=== PATIENT | male | born 1955 | race Two or more races ===

== ENCOUNTER 2021-11-12 12:31 | Inpatient (IN) | payer OTHER ==
[~2021-11-12] VITALS: Ht 172.7 cm; Wt 91.7 kg
[2021-11-12 14:29] LABS: Basophils # (auto) 0 10 ^3/uL (0-0.2); Basophils % (auto) 0.1 % (0.0-2.0); Eosinophils # (auto) 0.1 10 ^3/uL (0-0.8); Eosinophils % (auto) 0.7 % (0.0-7.0); Hematocrit 41.5 % (41.0-53.0); Lymphocytes # (auto) 0.9 10 ^3/uL (0.4-5.4); Lymphocytes % (auto) 12.2 % (10.0-50.0); Mean Corpuscular Hemoglobin 29.9 pg (28.0-32.0); Mean Corpuscular Hgb Conc. 33.7 g/dL (32.0-36.0); Mean Corpuscular Volume 88.6 fL (80.0-100.0); Monocytes # (auto) 0.7 10 ^3/uL (0-1.3); Monocytes % (auto) 9.2 % (0.0-12.0); Neutrophils # (auto) 5.8 10 ^3/uL (1.6-8.6); Neutrophils % (auto) 77.8 % (37.0-80.0); Nucleated Red Blood Cells % 0.2 %; Red Blood Cells 4.69 10^6/uL (4.5-5.90); Red Cell Distribution Width 14.6 % (11.8-14.3); White Blood Cell 7.4 10^3/uL (4.4-10.8)
[2021-11-12 14:43] LABS: Albumin 3.5 g/dL (3.4-5.0); BUN/Creatinine Ratio 15.8; Calcium 8.7 mg/dL (8.5-10.1); Magnesium 2.1 mg/dL (1.6-2.6); Potassium 3.8 mmol/L (3.5-5.1)
[2021-11-12 14:46] LABS: Total Protein 6.6 g/dL (6.4-8.2)
[2021-11-12] MEDS ORDERED: ONDANSETRON HCL 4 MG/2 ML VIAL IV ONE (17:00)
[2021-11-12] MEDS ORDERED: MORPHINE SULFATE 4 MG/ML SYR/VIAL IV ONE (17:00)
[2021-11-12] MEDS ORDERED: AZITHROMYCIN 500MG/ 250ML 250 ML IV ONE (17:30)
[2021-11-12] MEDS ORDERED: MORPHINE SULFATE INJ 2 MG/ml SYRG IV PRN (17:30)
[2021-11-12] MEDS ORDERED: cefTRIAXone 1GM/50ML D5W 50 ML IV ONE (17:45)
[2021-11-12] MEDS ORDERED: IOHEXOL 350 MG/ML 100ML IJ ONE (17:50)
[2021-11-12] MEDS ORDERED: ALBUTEROL SULF 2.5 MG/0.5ML(0.5%) NEB SOLN NEB PRN (18:15)
[2021-11-12] MEDS ORDERED: DexAMETHasone SOD PHOS 10MG/1ML VIAL INJ IV ONE (18:15)
[2021-11-12 18:33] LABS: Cholesterol 164 mg/dL (< 200); HDL Cholesterol 63 mg/dL (40-59); LDL Cholesterol 89 mg/dL (< 100); Triglycerides 74 mg/dL (< 150)
[2021-11-12 18:42] LABS: INR 0.97 (0.9-1.15)
[2021-11-12] MEDS: SODIUM CHLORIDE 0.9% 1,000 ML IV SCH (19:02)
[2021-11-12 19:30] VITALS: BP 16/101
[2021-11-12 19:39] LABS: Urine Bacteria MOD /hpf (None Seen); Urine Blood Negative /uL (Negative); Urine Mucus FEW (None Seen); Urine WBC 3 /hpf (0 - 3)
[2021-11-12] MEDS ORDERED: HYDROcodone-ACET 5/325MG TAB PO PRN (20:45)
[2021-11-12 22:45] VITALS: BP 115/62
[2021-11-13 02:31] VITALS: BP 115/62
[2021-11-13] MEDS: SODIUM CHLORIDE 0.9% 1,000 ML IV SCH ×2 (03:45→14:30)
[2021-11-13 05:08] VITALS: BP 120/73
[2021-11-13 06:05] LABS: Basophils # (auto) 0 10 ^3/uL (0-0.2); Basophils % (auto) 0.1 % (0.0-2.0); Eosinophils # (auto) 0 10 ^3/uL (0-0.8); Hematocrit 41.6 % (41.0-53.0); Hemoglobin 14.2 g/dL (13.5-17.5); Lymphocytes # (auto) 0.5 10 ^3/uL (0.4-5.4); Lymphocytes % (auto) 5.7 % (10.0-50.0); Mean Corpuscular Hgb Conc. 34.1 g/dL (32.0-36.0); Mean Corpuscular Volume 87.8 fL (80.0-100.0); Monocytes # (auto) 0.5 10 ^3/uL (0-1.3); Monocytes % (auto) 5.2 % (0.0-12.0); Neutrophils # (auto) 8.2 10 ^3/uL (1.6-8.6); Nucleated Red Blood Cells % 0.1 %; Red Blood Cells 4.74 10^6/uL (4.5-5.90); Red Cell Distribution Width 14.4 % (11.8-14.3); White Blood Cell 9.2 10^3/uL (4.4-10.8)
[2021-11-13 06:18] LABS: Albumin 3.2 g/dL (3.4-5.0); Calcium 9.1 mg/dL (8.5-10.1); Potassium 4.3 mmol/L (3.5-5.1)
[2021-11-13 06:20] LABS: BUN/Creatinine Ratio 19.8
[2021-11-13 06:29] LABS: Bilirubin, Total 0.8 mg/dL (0.2-1.0); Total Protein 7.2 g/dL (6.4-8.2)
[2021-11-13] MEDS: cefTRIAXone 1GM/50ML D5W 50 ML IV SCH (10:30)
[2021-11-13] MEDS: AZITHROMYCIN 500MG/ 250ML 250 ML IV SCH (11:30)
[2021-11-13] MEDS ORDERED: IPRATROPIUM BROM 0.5 MG/2.5ML INH SOL NEB PRN (12:45)
[2021-11-13] MEDS: FAMOTIDINE 20 MG TAB PO SCH (21:39)
[2021-11-13 22:00] VITALS: BP 112/77
[2021-11-14] MEDS: SODIUM CHLORIDE 0.9% 1,000 ML IV SCH (03:03)
[2021-11-14 05:00] VITALS: BP 132/87
[2021-11-14 06:12] LABS: Bilirubin, Direct 0.1 mg/dL (0-0.2); Magnesium 2.4 mg/dL (1.6-2.6); Potassium 4.6 mmol/L (3.5-5.1)
[2021-11-14 06:15] LABS: Bilirubin, Total 0.5 mg/dL (0.2-1.0); Total Protein 6.9 g/dL (6.4-8.2)
[2021-11-14] MEDS: cefTRIAXone 1GM/50ML D5W 50 ML IV SCH (08:41)
[2021-11-14] MEDS: ENOXAPARIN SOD 40 MG/0.4 ML SYRINGE SC SCH (08:41)
[2021-11-14] MEDS: AZITHROMYCIN 500MG/ 250ML 250 ML IV SCH (08:41)
[2021-11-14] MEDS: FAMOTIDINE 20 MG TAB PO SCH ×2 (08:41→22:01)
[2021-11-14 09:00] VITALS: BP 144/91
[2021-11-14] MEDS: HYDROcodone-ACET 5/325MG TAB PO PRN (12:03)
[2021-11-14] MEDS ORDERED: TRAZ50TA2 PO (12:08)
[2021-11-14] MEDS ORDERED: AMLO-496 PO (12:08)
[2021-11-14] MEDS ORDERED: DOCU100T15 PO (12:08)
[2021-11-14] MEDS ORDERED: PANT40T PO (12:08)
[2021-11-14 12:33] VITALS: BP 129/91
[2021-11-14 16:40] VITALS: BP 110/75
[2021-11-14 22:00] VITALS: BP 123/82
[2021-11-14] MEDS: MORPHINE SULFATE INJ 2 MG/ml SYRG IV PRN (22:16)
[2021-11-15 05:00] VITALS: BP 137/83
[2021-11-15 05:57] LABS: Albumin 3.1 g/dL (3.4-5.0)
[2021-11-15 06:01] LABS: Bilirubin, Direct 0.2 mg/dL (0-0.2); Bilirubin, Total 0.5 mg/dL (0.2-1.0); Total Protein 6.9 g/dL (6.4-8.2)
[2021-11-15] MEDS: cefTRIAXone 1GM/50ML D5W 50 ML IV SCH (08:15)
[2021-11-15 08:35] VITALS: BP 113/74
[2021-11-15] MEDS: AZITHROMYCIN 500MG/ 250ML 250 ML IV SCH (09:06)
[2021-11-15] MEDS: ENOXAPARIN SOD 40 MG/0.4 ML SYRINGE SC SCH (09:07)
[2021-11-15] MEDS: FAMOTIDINE 20 MG TAB PO SCH ×2 (09:07→21:38)
[2021-11-15] MEDS: amLODIPine BESYLATE 5 MG TAB PO SCH (09:15)
[2021-11-15] MEDS: HYDROcodone-ACET 5/325MG TAB PO PRN (09:15)
[2021-11-15 09:30] LABS: Hepatitis B Surface Antibody Negative (Negative)
[2021-11-15 09:59] LABS: Hepatitis A Total Antibody Positive (Negative)
[2021-11-15 11:50] LABS: Hepatitis C Antibody Negative (Negative)
[2021-11-15] MEDS ORDERED: guaiFENesin 200 MG/10 ML UD PO PRN (12:00)
[2021-11-15 12:40] VITALS: BP 148/98
[2021-11-15 16:40] VITALS: BP 113/79
[2021-11-15] MEDS ORDERED: ACETAMINOPHEN 325 MG TAB PO PRN (21:00)
[2021-11-15 21:43] VITALS: BP 108/73
[2021-11-16 04:38] VITALS: BP 126/86
[2021-11-16 09:00] VITALS: BP_SYST 116; BP_SYST 118; BP_DIAS 63; BP_DIAS 65
[2021-11-16] MEDS: amLODIPine BESYLATE 5 MG TAB PO SCH (09:19)
[2021-11-16] MEDS: cefTRIAXone 1GM/50ML D5W 50 ML IV SCH (09:19)
[2021-11-16] MEDS: FAMOTIDINE 20 MG TAB PO SCH ×2 (09:20→21:13)
[2021-11-16] MEDS: HYDROcodone-ACET 5/325MG TAB PO PRN ×2 (09:20→21:13)
[2021-11-16] MEDS: ENOXAPARIN SOD 40 MG/0.4 ML SYRINGE SC SCH (09:21)
[2021-11-16] MEDS ORDERED: AZITHROMYCIN 250 MG TAB PO SCH (10:00)
[2021-11-16] MEDS ORDERED: levoFLOXacin 750MG 150 ML IV ONE (10:15)
[2021-11-16 13:00] VITALS: BP 117/78
[2021-11-16 17:00] VITALS: BP 138/85
[2021-11-16 22:00] VITALS: BP 130/83
[2021-11-17] MEDS: HYDROcodone-ACET 5/325MG TAB PO PRN ×2 (04:48→20:30)
[2021-11-17 05:00] VITALS: BP 127/85
[2021-11-17 09:00] VITALS: BP 106/69
[2021-11-17] MEDS: ENOXAPARIN SOD 40 MG/0.4 ML SYRINGE SC SCH (10:24)
[2021-11-17] MEDS: FAMOTIDINE 20 MG TAB PO SCH ×2 (10:24→21:39)
[2021-11-17] MEDS: amLODIPine BESYLATE 5 MG TAB PO SCH (10:24)
[2021-11-17] MEDS: levoFLOXacin 750MG 150 ML IV SCH (10:25)
[2021-11-17 13:00] VITALS: BP 132/83
[2021-11-17 17:00] VITALS: BP 122/79
[2021-11-17 22:00] VITALS: BP 124/77
[2021-11-17] MEDS: MORPHINE SULFATE INJ 2 MG/ml SYRG IV PRN (23:24)
[2021-11-18 05:00] VITALS: BP 122/82
[2021-11-18 09:00] VITALS: BP 113/74
[2021-11-18] MEDS: levoFLOXacin 750MG 150 ML IV SCH (09:26)
[2021-11-18] MEDS: amLODIPine BESYLATE 5 MG TAB PO SCH (09:28)
[2021-11-18] MEDS: ENOXAPARIN SOD 40 MG/0.4 ML SYRINGE SC SCH (09:28)
[2021-11-18] MEDS: FAMOTIDINE 20 MG TAB PO SCH ×2 (09:28→21:36)
[2021-11-18 12:41] VITALS: BP 98/64
[2021-11-18 17:00] VITALS: BP 116/75
[2021-11-18 22:00] VITALS: BP 115/79
[2021-11-19 05:00] VITALS: BP 133/81
[2021-11-19 09:00] VITALS: BP 110/80
[2021-11-19] MEDS: levoFLOXacin 750MG 150 ML IV SCH (10:34)
[2021-11-19] MEDS: amLODIPine BESYLATE 5 MG TAB PO SCH (10:35)
[2021-11-19] MEDS: ENOXAPARIN SOD 40 MG/0.4 ML SYRINGE SC SCH (10:35)
[2021-11-19] MEDS: FAMOTIDINE 20 MG TAB PO SCH (10:35)
[2021-11-19 13:33] VITALS: BP 115/82
== END 2021-11-19 16:12 | disposition home or self-care (01) | DRG 193 ==
LOC: ER 12:31 → OVERFLOW 17:30 → WEST WING 22:33
PROVIDERS: ADMIT Registered Nurse; ATTEND Internal Medicine Nephrology
DX: J18.9 Pneumonia, unspecified organism (principal); J96.01 Acute respiratory failure with hypoxia; J44.1 Chronic obstructive pulmonary disease with (acute) exacerbation; N39.0 Urinary tract infection, site not specified; J44.0 Chronic obstructive pulmonary disease with (acute) lower respiratory infection; E66.9 Obesity, unspecified; I12.9 Hypertensive chronic kidney disease with stage 1 through stage 4 chronic kidney disease, or unspecified chronic kidney disease; K76.0 Fatty (change of) liver, not elsewhere classified; N18.2 Chronic kidney disease, stage 2 (mild); K21.9 Gastro-esophageal reflux disease without esophagitis; Z96.653 Presence of artificial knee joint, bilateral; B96.4 Proteus (mirabilis) (morganii) as the cause of diseases classified elsewhere; Z20.822 Contact with and (suspected) exposure to COVID-19; M19.90 Unspecified osteoarthritis, unspecified site; Z87.891 Personal history of nicotine dependence; Z68.34 Body mass index [BMI] 34.0-34.9, adult; Z86.16 Personal history of COVID-19
CPT/HCPCS: 36415; 36600; 71045; 71275; 76705; 80053; 80061; 80076; 81001; 82306; 82805; 83036; 83735; 83880; 84132; 84443; 84484; 85025; 85379; 85610; 86704; 86706; 86708; 86803; 87040; 87086; 87088; 87186; 87340; 93005; 93306; 93925; 93970; 94640; 96365; 96375; 97110; 97116; 97530; G0378; J0696; J1100; J1956; J2405

== ENCOUNTER 2022-03-07 07:50 | Emergency (ER) | payer OTHER ==
[~2022-03-07] VITALS: Ht 172.7 cm; Wt 101.8 kg
[~2022-03-07 07:50] MED LIST: AMLO-496 PO; PANT40T PO; TRAZ50TA2 PO
[2022-03-07 08:17] VITALS: BP 108/81
[2022-03-07 09:25] LABS: Albumin 3.7 g/dL (3.4-5.0); Calcium 8.8 mg/dL (8.5-10.1)
[2022-03-07 09:28] LABS: Basophils # (auto) 0 10 ^3/uL (0-0.2); Basophils % (auto) 0.3 % (0.0-2.0); Bilirubin, Total 0.4 mg/dL (0.2-1.0); Eosinophils # (auto) 0.3 10 ^3/uL (0-0.8); Eosinophils % (auto) 6.2 % (0.0-7.0); Hematocrit 44.4 % (41.0-53.0); Hemoglobin 14.5 g/dL (13.5-17.5); Lymphocytes # (auto) 0.9 10 ^3/uL (0.4-5.4); Lymphocytes % (auto) 20.2 % (10.0-50.0); Mean Corpuscular Hemoglobin 28.8 pg (28.0-32.0); Mean Corpuscular Hgb Conc. 32.7 g/dL (32.0-36.0); Mean Corpuscular Volume 87.9 fL (80.0-100.0); Monocytes # (auto) 0.4 10 ^3/uL (0-1.3); Monocytes % (auto) 8.6 % (0.0-12.0); Neutrophils # (auto) 2.9 10 ^3/uL (1.6-8.6); Neutrophils % (auto) 64.7 % (37.0-80.0); Nucleated Red Blood Cells % 0.1 %; Red Blood Cells 5.05 10^6/uL (4.5-5.90); Red Cell Distribution Width 14.1 % (11.8-14.3); Total Protein 6.6 g/dL (6.4-8.2); White Blood Cell 4.5 10^3/uL (4.4-10.8)
[2022-03-07 09:57] LABS: Potassium 4.5 mmol/L (3.5-5.1)
[2022-03-07] MEDS ORDERED: IBU600T PO (12:00)
== END 2022-03-07 12:50 | disposition home or self-care (01) ==
LOC: ER 07:50
DX: I10 Essential (primary) hypertension (principal); Z79.899 Other long term (current) drug therapy
CPT/HCPCS: 36415; 70450; 80053; 83880; 84484; 85025; 93005

== ENCOUNTER 2022-07-16 19:02 | Inpatient (IN) | payer OTHER, MEDICAID ==
[~2022-07-16] VITALS: Ht 170.2 cm; Wt 99.8 kg
[~2022-07-16 19:02] MED LIST changes: +IBU600T PO
[2022-07-16] MEDS ORDERED: IOHEXOL 350 MG/ML 100ML IJ ONE (19:57)
[2022-07-16 20:27] LABS: Basophils # (auto) 0 10 ^3/uL (0-0.2); Basophils % (auto) 0.4 % (0.0-2.0); Eosinophils # (auto) 0.3 10 ^3/uL (0-0.8); Eosinophils % (auto) 6.6 % (0.0-7.0); Hematocrit 48.5 % (41.0-53.0); Hemoglobin 15.6 g/dL (13.5-17.5); Lymphocytes # (auto) 0.9 10 ^3/uL (0.4-5.4); Lymphocytes % (auto) 23.3 % (10.0-50.0); Mean Corpuscular Hgb Conc. 32.1 g/dL (32.0-36.0); Mean Corpuscular Volume 87.1 fL (80.0-100.0); Monocytes # (auto) 0.4 10 ^3/uL (0-1.3); Monocytes % (auto) 10.4 % (0.0-12.0); Neutrophils # (auto) 2.4 10 ^3/uL (1.6-8.6); Neutrophils % (auto) 59.3 % (37.0-80.0); Red Blood Cells 5.57 10^6/uL (4.5-5.90); Red Cell Distribution Width 14.1 % (11.8-14.3)
[2022-07-16 20:37] LABS: Albumin 3.9 g/dL (3.4-5.0); Calcium 8.9 mg/dL (8.5-10.1); Magnesium 2.4 mg/dL (1.6-2.6); Potassium 4.3 mmol/L (3.5-5.1)
[2022-07-16 20:39] LABS: INR 0.96 (0.9-1.15); Partial Thromboplastin Time 27.3 sec (24.6-33.4)
[2022-07-16 20:40] LABS: BUN/Creatinine Ratio 19.2; Bilirubin, Total 0.3 mg/dL (0.2-1.0); Total Protein 7.2 g/dL (6.4-8.2)
[2022-07-17] MEDS ORDERED: MECLIZINE HCL 25 MG TAB PO PRN (01:00)
[2022-07-17] MEDS ORDERED: ONDANSETRON HCL 4 MG/2 ML VIAL IV PRN (01:00)
[2022-07-17] MEDS: ACETAMINOPHEN 325 MG TAB PO PRN ×2 (11:14→20:41)
[2022-07-17] MEDS: PANTOPRAZOLE 40 MG TAB PO SCH (11:15)
[2022-07-17] MEDS: ENOXAPARIN SOD 40 MG/0.4 ML SYRINGE SC SCH (11:15)
[2022-07-17] MEDS: amLODIPine BESYLATE 5 MG TAB PO SCH (11:15)
[2022-07-17 17:30] VITALS: BP 133/82
[2022-07-17 17:31] VITALS: BP 133/87
[2022-07-17 20:00] VITALS: BP 137/72
[2022-07-17 22:00] VITALS: BP 137/72
[2022-07-18] VITALS (7 sets, daily range): BP systolic 124–144; BP diastolic 65–93
[2022-07-18 05:54] LABS: Basophils # (auto) 0 10 ^3/uL (0-0.2); Basophils % (auto) 0.3 % (0.0-2.0); Eosinophils # (auto) 0.3 10 ^3/uL (0-0.8); Eosinophils % (auto) 6.7 % (0.0-7.0); Hematocrit 48.4 % (41.0-53.0); Hemoglobin 15.6 g/dL (13.5-17.5); Lymphocytes # (auto) 1.2 10 ^3/uL (0.4-5.4); Mean Corpuscular Hgb Conc. 32.2 g/dL (32.0-36.0); Mean Corpuscular Volume 87.1 fL (80.0-100.0); Monocytes # (auto) 0.6 10 ^3/uL (0-1.3); Monocytes % (auto) 13.3 % (0.0-12.0); Neutrophils # (auto) 2.7 10 ^3/uL (1.6-8.6); Neutrophils % (auto) 54.7 % (37.0-80.0); Nucleated Red Blood Cells % 0.6 %; Red Blood Cells 5.55 10^6/uL (4.5-5.90); Red Cell Distribution Width 14.2 % (11.8-14.3); White Blood Cell 4.8 10^3/uL (4.4-10.8)
[2022-07-18] MEDS: PANTOPRAZOLE 40 MG TAB PO SCH (09:58)
[2022-07-18] MEDS: amLODIPine BESYLATE 5 MG TAB PO SCH (09:58)
[2022-07-18] MEDS: ACETAMINOPHEN 325 MG TAB PO PRN (09:59)
[2022-07-18] MEDS: ENOXAPARIN SOD 40 MG/0.4 ML SYRINGE SC SCH (09:59)
[2022-07-19 05:00] VITALS: BP 128/81
[2022-07-19 08:00] VITALS: BP 124/77
[2022-07-19 08:30] VITALS: BP 124/77
[2022-07-19] MEDS: PANTOPRAZOLE 40 MG TAB PO SCH (09:15)
[2022-07-19] MEDS: amLODIPine BESYLATE 5 MG TAB PO SCH (09:15)
[2022-07-19] MEDS: ENOXAPARIN SOD 40 MG/0.4 ML SYRINGE SC SCH (09:15)
[2022-07-19 12:30] VITALS: BP 129/80
[2022-07-19 17:00] VITALS: BP 136/86
[2022-07-19] MEDS: ACETAMINOPHEN 325 MG TAB PO PRN (19:59)
[2022-07-19] MEDS ORDERED: LIDOCAINE 1% (LOCAL ANESTH.) PF 5ml SDV ID ONE (21:00)
[2022-07-19 22:00] VITALS: BP 141/87
[2022-07-20 05:00] VITALS: BP 107/68
[2022-07-20 09:14] VITALS: BP 95/64
[2022-07-20] MEDS: PANTOPRAZOLE 40 MG TAB PO SCH (10:13)
[2022-07-20] MEDS: amLODIPine BESYLATE 5 MG TAB PO SCH (10:14)
[2022-07-20] MEDS: ENOXAPARIN SOD 40 MG/0.4 ML SYRINGE SC SCH (10:14)
[2022-07-20] MEDS: ACETAMINOPHEN 325 MG TAB PO PRN (12:07)
[2022-07-20 12:08] VITALS: BP 125/87
[2022-07-20 12:48] VITALS: BP 143/91
[2022-07-20 17:05] VITALS: BP 125/88
[2022-07-20 22:00] VITALS: BP 121/72
[2022-07-21 05:00] VITALS: BP 111/74
[2022-07-21 09:00] VITALS: BP 110/75
[2022-07-21] MEDS: PANTOPRAZOLE 40 MG TAB PO SCH (09:17)
[2022-07-21] MEDS: amLODIPine BESYLATE 5 MG TAB PO SCH (09:17)
[2022-07-21] MEDS: ENOXAPARIN SOD 40 MG/0.4 ML SYRINGE SC SCH (09:18)
[2022-07-21 13:00] VITALS: BP 129/75
[2022-07-21] MEDS ORDERED: SUMA50TA16 PO (14:16)
[2022-07-21] MEDS ORDERED: TAMS0.4C36 PO (14:16)
[2022-07-21] MEDS ORDERED: SERT-160 PO (14:16)
[2022-07-21] MEDS ORDERED: SENN8.6T83 PO (14:16)
[2022-07-21] MEDS ORDERED: GABA-339 PO (14:16)
[2022-07-21] MEDS ORDERED: FIN5T PO (14:16)
[2022-07-21] MEDS ORDERED: DOCU100C10 PO (14:16)
[2022-07-21] MEDS ORDERED: DOCU250C67 PO (14:16)
[2022-07-21] MEDS ORDERED: BACL10TA PO (14:16)
[2022-07-21] MEDS ORDERED: CHOL20002 PO (14:16)
[2022-07-21] MEDS ORDERED: CETI-120 PO (14:21)
[2022-07-21] MEDS ORDERED: [UNRECOGNIZED DRUG - CODE] PO (14:21)
[2022-07-21 14:30] VITALS: BP 132/86
[2022-07-21 17:00] VITALS: BP 142/81
[2022-07-21] MEDS: HYDROcodone-ACET 5/325MG TAB PO PRN (19:16)
[2022-07-21 22:06] VITALS: BP 140/70
[2022-07-22] MEDS: HYDROcodone-ACET 5/325MG TAB PO PRN ×3 (04:18→20:29)
[2022-07-22 05:00] VITALS: BP 122/71
[2022-07-22 08:56] VITALS: BP 119/72
[2022-07-22] MEDS: amLODIPine BESYLATE 5 MG TAB PO SCH (10:12)
[2022-07-22] MEDS: ENOXAPARIN SOD 40 MG/0.4 ML SYRINGE SC SCH (10:12)
[2022-07-22] MEDS: PANTOPRAZOLE 40 MG TAB PO SCH (10:12)
[2022-07-22 12:40] VITALS: BP 141/86
[2022-07-22 17:20] VITALS: BP 136/78
[2022-07-22 22:00] VITALS: BP 117/78
[2022-07-22] MEDS: TEMAZEPAM 15 MG CAP PO PRN (22:00)
[2022-07-23 05:00] VITALS: BP 101/59
[2022-07-23 08:43] VITALS: BP 124/72
[2022-07-23] MEDS: PANTOPRAZOLE 40 MG TAB PO SCH (09:23)
[2022-07-23] MEDS: amLODIPine BESYLATE 5 MG TAB PO SCH (09:24)
[2022-07-23] MEDS: ENOXAPARIN SOD 40 MG/0.4 ML SYRINGE SC SCH (09:24)
[2022-07-23] MEDS: HYDROcodone-ACET 5/325MG TAB PO PRN ×3 (10:09→22:52)
[2022-07-23 12:47] VITALS: BP 102/62
[2022-07-23] MEDS: SODIUM CHLORIDE 0.9% 1,000 ML IV SCH ×2 (15:48→22:15)
[2022-07-23 17:37] VITALS: BP 118/64
[2022-07-23] MEDS: TEMAZEPAM 15 MG CAP PO PRN (21:20)
[2022-07-23 23:41] VITALS: BP 115/66
[2022-07-24 05:25] VITALS: BP 120/64
[2022-07-24] MEDS: SODIUM CHLORIDE 0.9% 1,000 ML IV SCH ×2 (06:15→08:44)
[2022-07-24] MEDS: ACETAMINOPHEN 325 MG TAB PO PRN ×2 (08:24→21:30)
[2022-07-24] MEDS: ENOXAPARIN SOD 40 MG/0.4 ML SYRINGE SC SCH (08:24)
[2022-07-24] MEDS: PANTOPRAZOLE 40 MG TAB PO SCH (08:24)
[2022-07-24 08:25] VITALS: BP 120/71
[2022-07-24] MEDS: amLODIPine BESYLATE 5 MG TAB PO SCH (08:25)
[2022-07-24] MEDS: HYDROcodone-ACET 5/325MG TAB PO PRN ×2 (08:25→20:10)
[2022-07-24 12:30] VITALS: BP 105/64
[2022-07-24 12:35] LABS: Protein, CSF 43.5 mg/dL (15-45)
[2022-07-24 13:06] LABS: CSF White Blood Cells 0 CUMM (0-5)
[2022-07-24 16:20] VITALS: BP 111/68
[2022-07-24] MEDS: TEMAZEPAM 15 MG CAP PO PRN (21:30)
[2022-07-24 22:00] VITALS: BP 112/68
[2022-07-25 05:09] VITALS: BP 129/73
[2022-07-25 08:35] VITALS: BP 118/74
[2022-07-25] MEDS: ENOXAPARIN SOD 40 MG/0.4 ML SYRINGE SC SCH (08:45)
[2022-07-25] MEDS: PANTOPRAZOLE 40 MG TAB PO SCH (08:45)
[2022-07-25] MEDS: HYDROcodone-ACET 5/325MG TAB PO PRN ×3 (08:45→21:43)
[2022-07-25] MEDS: amLODIPine BESYLATE 5 MG TAB PO SCH (08:46)
[2022-07-25 12:30] VITALS: BP 114/75
[2022-07-25 16:20] VITALS: BP 117/67
[2022-07-25 22:00] VITALS: BP 126/82
[2022-07-25] MEDS: TEMAZEPAM 15 MG CAP PO PRN (23:09)
[2022-07-25] MEDS: ACETAMINOPHEN 325 MG TAB PO PRN (23:14)
[2022-07-26 05:00] VITALS: BP 115/77
[2022-07-26 08:00] VITALS: BP 110/68
[2022-07-26] MEDS: PANTOPRAZOLE 40 MG TAB PO SCH (10:32)
[2022-07-26] MEDS: HYDROcodone-ACET 5/325MG TAB PO PRN (10:35)
[2022-07-26] MEDS: ENOXAPARIN SOD 40 MG/0.4 ML SYRINGE SC SCH (10:36)
[2022-07-26] MEDS: amLODIPine BESYLATE 5 MG TAB PO SCH (10:37)
[2022-07-26] MEDS ORDERED: AMLO-496 PO (11:35)
[2022-07-26] MEDS ORDERED: TEMA30CA5 PO (11:35)
[2022-07-26] MEDS ORDERED: HYDR-4902 PO (11:35)
[2022-07-26] MEDS ORDERED: PANT40T PO (11:35)
[2022-07-26] MEDS ORDERED: MECL1TAB42 PO (11:35)
[2022-07-26 12:26] VITALS: BP 124/76
[2022-07-26 15:52] VITALS: BP 110/68
[2022-07-26 17:00] VITALS: BP 130/75
== END 2022-07-26 17:02 | disposition home or self-care (01) | DRG 189 ==
LOC: ER 19:05 → OVERFLOW 07-17 01:05 → WEST WING 07-17 15:44
PROVIDERS: ADMIT Nurse Practitioner; ATTEND Family Medicine
PROC: 4A00X4Z Measurement of Central Nervous Electrical Activity, External Approach (ICD-10-PCS; principal; 2022-07-16)
PROC: 009U3ZZ Drainage of Spinal Canal, Percutaneous Approach (ICD-10-PCS; 2022-07-19)
PROC: 009U3ZZ Drainage of Spinal Canal, Percutaneous Approach (ICD-10-PCS; 2022-07-23)
PROC: 009U3ZZ Drainage of Spinal Canal, Percutaneous Approach (ICD-10-PCS; 2022-07-24)
PROC: B01BZZZ Fluoroscopy of Spinal Cord (ICD-10-PCS; 2022-07-24)
DX: J96.00 Acute respiratory failure, unspecified whether with hypoxia or hypercapnia (principal); G45.9 Transient cerebral ischemic attack, unspecified; J98.11 Atelectasis; E66.9 Obesity, unspecified; G89.29 Other chronic pain; Z53.20 Procedure and treatment not carried out because of patient's decision for unspecified reasons; M54.50 Low back pain, unspecified; Z20.822 Contact with and (suspected) exposure to COVID-19; G47.10 Hypersomnia, unspecified; I10 Essential (primary) hypertension; Z79.1 Long term (current) use of non-steroidal anti-inflammatories (NSAID); Z79.899 Other long term (current) drug therapy; Z68.34 Body mass index [BMI] 34.0-34.9, adult
CPT/HCPCS: 36415; 62272; 70450; 70496; 70551; 71045; 80053; 82945; 82962; 83735; 83880; 84157; 84484; 85025; 85610; 85730; 87070; 87205; 87426; 89051; 93005; 93306; 93886; 95819; 96372; G0378